=== PATIENT | male | born 1985 | race Caucasian/White ===

== ENCOUNTER 2022-08-13 13:17 | Emergency (ER) | payer BC, OTHER ==
[2022-08-13 17:50] VITALS: BP 122/78; PULSE 69
== END 2022-08-13 15:58 | disposition home or self-care (01) ==
LOC: JD.ED 13:17
DX: S60.221A Contusion of right hand, initial encounter (principal); W00.0XXA Fall on same level due to ice and snow, initial encounter
CPT/HCPCS: 73130-26-RT; 73130-RT; 99282; 99283